=== PATIENT | male | born 1970 | race Caucasian/White ===

== ENCOUNTER 2022-07-24 11:11 | Outpatient (CLI) | payer SELFPAY ==
--- NOTE | 2022-07-24 11:30 | CRLHL7_ITS ---
For Patients: As a result of the Century Cures Act, medical imaging exams and procedure reports are released immediately into your electronic medical record. You may view this report before your referring provider. If you have questions, please contact your health care provider. INDICATION: Pain. TECHNIQUE: CT abdomen and pelvis without contrast. COMPARISON: None. FINDINGS: Lower chest: Scattered atelectasis. Liver: Hepatic steatosis. No suspicious masses. Gallbladder and bile ducts: No stones or inflammation. No biliary dilatation. Pancreas: Unremarkable. No mass or inflammation. Spleen: Normal in size. No masses. Adrenal glands: Normal in size. No nodules. Kidneys: Normal in size. No suspicious masses, stones, or hydronephrosis. GI tract: Mild colonic stool burden. Normal in caliber. No sign of mass or inflammation. Normal appendix. Vasculature: Abdominal aorta is normal in caliber. Lymph nodes: No lymphadenopathy. Peritoneum/Abdominal Wall: Tiny fat containing umbilical hernia. No sign of mass or infiltration. No free air or significant free fluid. Pelvis: Unremarkable. No pelvic masses. Bones: Unremarkable for age. IMPRESSION: Hepatic steatosis. Tiny fat containing umbilical hernia. Mild colonic stool burden. Otherwise, no acute intra-abdominal/pelvic abnormality. Please note that all CT scans at this facility use dose modulation, iterative reconstruction, and/or weight-based dosing when appropriate to reduce radiation dose to as low as reasonably achievable. Dictated by Jensen Bowser MD @ 07/24/2022 12:10:34 PM (Electronically Signed)
== END 2022-07-24 11:12 | disposition home or self-care (01) ==
PROVIDERS: PCP Family Medicine; Visit Provider Family Medicine
DX: Z00.00 Encounter for general adult medical examination without abnormal findings (principal); K42.9 Umbilical hernia without obstruction or gangrene; R10.9 Unspecified abdominal pain; Z13.6 Encounter for screening for cardiovascular disorders
CPT/HCPCS: 74176; 80053; 80061; 83690; T1013

== ENCOUNTER 2023-09-23 06:09 | Day surgery (SDC) | payer BC, SELFPAY ==
[2023-09-23] VITALS (15 sets, daily range): BP systolic 111–131; BP diastolic 74–90; PULSE 82–95; RESP 12–24; TEMP 36.2–36.6; O2SAT 92–96; BMI 29.8
--- NOTE | 2023-09-23 07:14 | W.PM.H&PU ---
History & Physical Update History & Physical Update H&P Reviewed and patient assessed: No changes noted
--- NOTE | 2023-09-23 07:19 | P.GSOP_ITS ---
Operative Note Date of procedure: 09/23/23 Pre-op diagnosis: 1. Symptomatic umbilical hernia. 2. Symptomatic right lower quadrant abdominal wall soft tissue mass. Post-op diagnosis: Same Type of Procedure: 1. Open umbilical hernia repair without mesh. 2. Excision of right lower quadrant abdominal wall soft tissue mass. Indications: 53-year-old male was seen in clinic for evaluation of umbilical hernia. Patient had an umbilical bulge for several years. He initially was evaluated over a year ago and decided not to proceed with surgery due to insurance issues. However, he continued to have pain at his umbilical bulge. He noticed that the bulge was increasing in size. Patient was very concerned about his hernia pain getting worse and wished to proceed with repair. Patient also complained that he had a right lower quadrant abdominal wall bulge that was painful. He continued to have this painful bulge for a few years. He was wondering if this needs to be removed. on clinical exam patient had slightly enlarged umbilical bulge compared to the last year's exam. This was about 2.5 cm in the largest dimension and was tender to palpation. I was not able to reduce the umbilical bulge. In the right lower quadrant abdominal wall there was a palpable small fatty nodule that was tender to palpation. This was tiago picious to be a lipoma. Given patient's clinical history and his symptoms, an open umbilical hernia repair and excision of right lower quadrant abdominal wall nodule were recommended. the procedures were discussed with the patient in detail. The risks associated procedure including infection, bleeding, possible need for additional procedures, and hernia recurrence were all discussed with the patient, and he agreed to proceed. Procedure Description: After discussing the risks and benefits of the procedure, the patient signed informed consent.? The operative site was marked and the patient was brought to the operating room and placed on the operating table in supine position.? Care was taken to pad the patient's pressure points.?? The patient was then intubated by anesthesia.?? The operative site was then prepped and draped in the usual sterile fashion.? A time-out was then performed. A small pimple was noted to the left and superior to the umbilicus. This was covered with Tegaderm. I first proceeded with excision of right lower quadrant abdominal wall nodule. Local anesthetic was injected at the surgical site. A horizontal 2 cm incision was made over the palpable soft tissue mass. This was done with a scalpel. Dermis and subcutaneous fat were divided with cautery. A well-circumscribed fatty on palpation mass was then bluntly dissected away from the subcutaneous tissue and pulled out from the incision. Fatty attachments were divided with cautery. The mass had an appearance of a lipoma. It was measuring 2.5 cm. This was sent to pathology. Hemostasis was achieved with cautery. The dermis was then reapproximated with 3-0 Vicryl sutures. I then proceeded with an open umbilical hernia repair. Local anesthetic was injected at the surgical site. A curvilinear skin incision was made with a scalpel just below umbilicus. Subcutaneous tissue was dissected with electrocautery down to the hernia sac and anterior fascia. The hernia sac was dissected off of the anterior fascia and subcutaneous fat around the fascial defect was dissected away from the fascial defect with cautery. Preperitoneal fat was incarcerated through the fascial defect and that was easily reduced. The fascial defect was approximately 9 mm. The surrounding fascia was strong. Given the size of the defect, I elected to repair this primarily without mesh. The anterior fascia was then closed with 0-0 Neurolon interrupted stitches. Additional local anesthetic was injected into subcutaneous tissues. An umbilicus was tacked down with interrupted Vicryl stitches. Subdermal layer was closed with interrupted sutures using 3-0 Vicryl. Skin of both incisions was closed with 4-0 Monocryl using subcuticular stitch. Steri strips were applied over the incision. I then placed a folded sterile 2 x 2 and 4x4 gauze over the incision and covered it with tape. All counts were correct at the end of the case. Patient tolerated the procedure well and was transferred to PACU without any complications. Findings: Small ( 9 mm) fascial defect closed primarily without mesh. Right lower quadrant abdominal wall mass had an appearance of lipoma. Anesthesia: GETA Surgeon: Arabella Marte MD Estimated blood loss (mL): 5 Additional Specimen Information: 1. Right lower quadrant abdominal wall mass. Condition: stable Disposition: PACU
[2023-09-23] MEDS: CEFAZOLIN 2 GM INJ IVP (07:40)
[2023-09-23] MEDS: SODIUM CHLORIDE 0.9 % (FLUSH) 10 ML SYRINGE IVF (07:50)
[2023-09-23] MEDS: LACTATED RINGERS 1000 ML 1,000 ML 100 ML IV ×2 (07:50→07:56)
[2023-09-23] MEDS: BUPIVACAINE 0.25% 30 ML INJECTION (08:10)
--- NOTE | 2023-09-23 09:03 | SUR.PHASEI ---
Patient meets discharge criteria from PACU
--- NOTE | 2023-09-23 09:03 | W.ANESCHARGE ---
Anesthesia Charges Start Date/Time Anesthesia Start Date: 09/23/23 Anesthesia Start Time: 07:25 Stop Date/Time Anesthesia Stop Date: 09/23/23 Anesthesia Stop Time: 08:36
--- NOTE | 2023-09-23 09:05 | W.ANESCHARGE ---
Anesthesia Charges Start Date/Time Anesthesia Start Date: 09/23/23 Anesthesia Start Time: 07:25 Stop Date/Time Anesthesia Stop Date: 09/23/23 Anesthesia Stop Time: 08:36
[2023-09-23] MEDS: HYDROCODONE-ACETAMIN 5-325 MG 1 TAB PO (09:55)
== END 2023-09-23 10:59 | disposition home or self-care (01) ==
LOC: OR 06:10
PROVIDERS: PCP Family Medicine; Visit Provider Surgery
PROC: (CPT 49591; principal; 2023-09-23 07:30)
PROC: (CPT 49591; 2023-09-23 07:30)
DX: K42.9 Umbilical hernia without obstruction or gangrene (principal); D17.1 Benign lipomatous neoplasm of skin and subcutaneous tissue of trunk
CPT/HCPCS: 49591; 22902; 00750; 00790; 00832; 88304; T1013; A9270; J0330; J0665; J0690; J1100; J1885; J2250; J2405; J2704; J3010; J3490; J7120